=== PATIENT | male | born 1985 | race Hispanic/Latino ===

== ENCOUNTER 2021-05-31 11:55 | Emergency (ER) | payer SELFPAY ==
[~2021-05-31] VITALS: Ht 170.2 cm; Wt 78.9 kg
[2021-05-31 11:58] VITALS: BP 156/97
[2021-05-31] MEDS ORDERED: L.E.T. GEL 3ML SYG TP ONE (12:11)
[2021-05-31 16:10] VITALS: BP 142/87
== END 2021-05-31 16:11 | disposition home or self-care (01) ==
LOC: EDH 11:55
DX: S01.511A Laceration without foreign body of lip, initial encounter (principal); G40.909 Epilepsy, unspecified, not intractable, without status epilepticus; Z98.890 Other specified postprocedural states; X58.XXXA Exposure to other specified factors, initial encounter; Y93.89 Activity, other specified; Y92.89 Other specified places as the place of occurrence of the external cause; Y99.8 Other external cause status
CPT/HCPCS: 12011; 70450